=== PATIENT | female | born 1995 | race Two or more races ===

== ENCOUNTER 2018-05-11 12:28 | Outpatient (CLI) | payer BC, MEDICAID ==
[2018-05-11 13:50] LABS: APPEARANCE,URINE SLIGHTLY-CLOUDY; BILIRUBIN,URINE NEGATIVE (NEGATIVE); COLOR,URINE YELLOW; GLUCOSE, URINE NEGATIVE (NEGATIVE); KETONES,URINE NEGATIVE (NEGATIVE); LEUKOCYTE ESTERASE,URINE SMALL (NEGATIVE); NITRITE,URINE NEGATIVE (NEGATIVE); PROTEIN,URINE NEGATIVE (NEGATIVE); URINE SPECIFIC GRAVITY 1.021
--- NOTE | 2018-05-11 13:50 | L&D Progress Notes ---
PROGRESS NOTES Datetime Report Generated by CPN: 05/11/2018 13:49 PROGRESS NOTE Vital Signs : Reviewed; Within Normal Limits Comment: 23 y/o here for labor check, = 2011 and 2013 C/S 2014 for abruption, delivered at [facility], we need Operative report Allergies: Penicillin, denies smoking, alcohol or illegal drugs Hx UTI x 1, no blood transfusions, No Psych issues, no seizures, no BP or heart issues Single, FOB: involved, age 37. Hisp/Blk Feels safe at home, No Toxo EDC May 23 by sono at 20 weeks, Maleinfant, No Circ GTT nl per pt Desires MEDS: PNV's Last visit 32 weeks, had + Chlamydia and they did test of cure but does not know the results No Hx HSV Has been in [place] x 4 weeks Instructed pt she needs to get her a OB ROMELIA, getting records from [facility] for Operative Report and [facility] good FM Plan: Complete OB Sono GC and Chlamydia, GBS NST Cat 1, rare UC MEMBRANES Membranes: Intact FETUS A FHR - Baseline: 130 Monitoring: External US Variability: Moderate 6-25bpm Accelerations: 15X15 SIGNATURE SIGNATURE: [id number] Assignment: Blank Clinton MD Signature: with User ID: [email or web address] : with User ID: [email or web address]
[2018-05-11 14:26] LABS: URINE AMPHETAMINES SCREEN NEGATIVE; URINE BARBITURATES SCREEN NEGATIVE; URINE BENZODIAZEPINES SCREEN NEGATIVE; URINE COCAINE SCREEN NEGATIVE; URINE MARIJUANA (THC) SCREEN NEGATIVE; URINE METHADONE SCREEN NEGATIVE
[2018-05-11 14:28] LABS: URINE PHENCYCLIDINE SCREEN NEGATIVE
[2018-05-11 15:42] LABS: CHLAM PCR NOT DETECTED (NOT DETECT); GON PCR NOT DETECTED (NOT DETECT)
--- NOTE | 2018-05-11 16:54 | RADIOLOGY REPORT (SQ) ---
EXAM DESCRIPTION: U/S OB 14+ TRNABD 1GES W/O DOP COMPLETED DATE/TIME: 05/11/2018 4:38 pm REASON FOR STUDY: complete us for unable to document care COMPARISON: None. TECHNIQUE: Static and Dynamic grayscale imaging performed of gravid uterus using transabdominal appr oac. Additional selected color Doppler and spectral images recorded. All stored on PACS. LIMITATIONS: None. FINDINGS: EGA: 36 weeks 4 days RYAN: 06/04/2018 EFW: 6 lb 6 oz PERCENTILE: 23 percentile VAZQUEZ: 12.8 cm PLACENTA: Anterior. Migrated PRESENTATION: Cephalic. ANATOMY: HEART RATE: 117 beats per minute. to 152 beats per Min FOUR CHAMBER HEART: Visualized. THREE VESSEL CORD: Yes. CORD INSERTION: Visualized. KIDNEYS AND BLADDER: Visualized. Appear normal. STOMACH: Visualized. Appears normal. SPINE: Normal as visualized. BRAIN AND LATERAL VENTRICLES: Lateral ventricles not seen. Normal brain as visualized. OTHER: No other significant finding. MATERNAL ADNEXA: Maternal ovaries not visualized. CERVICAL LENGTH: 2.8 cm Closed. OTHER: No other significant finding. IMPRESSION: LIVING INTRAUTERINE . ESTIMATED GESTATIONAL AGE 36 weeks 4 days NO VISUALIZED ANOMALIES. Trimester of : Third trimester - 28 weeks to delivery. TECHNICAL DOCUMENTATION: JOB ID: [id number] [employer]- All Rights Reserved Reading location - IP/workstation name: [email or web address]
== END 2018-05-11 16:45 | disposition home or self-care (01) ==
LOC: LC 12:28
PROVIDERS: ATTEND Obstetrics & Gynecology
PROC: 4A1HXCZ Monitoring of Products of Conception, Cardiac Rate, External Approach (ICD-10-PCS; principal; 2018-05-11)
DX: O47.1 False labor at or after 37 completed weeks of gestation (principal); Z3A.38 38 weeks gestation of pregnancy
CPT/HCPCS: 59025; 76805; 80307; 81005; 87077; 87081; 87491; 87591

== ENCOUNTER 2018-05-23 07:14 | Outpatient (CLI) | payer BC, MEDICAID ==
[2018-05-23 08:12] LABS: APPEARANCE,URINE SLIGHTLY-CLOUDY; BILIRUBIN,URINE NEGATIVE (NEGATIVE); COLOR,URINE YELLOW; GLUCOSE, URINE NEGATIVE (NEGATIVE); KETONES,URINE NEGATIVE (NEGATIVE); LEUKOCYTE ESTERASE,URINE NEGATIVE (NEGATIVE); NITRITE,URINE NEGATIVE (NEGATIVE); PROTEIN,URINE NEGATIVE (NEGATIVE); URINE SPECIFIC GRAVITY 1.016
[2018-05-23 08:29] LABS: URINE AMPHETAMINES SCREEN NEGATIVE; URINE BARBITURATES SCREEN NEGATIVE; URINE BENZODIAZEPINES SCREEN NEGATIVE; URINE COCAINE SCREEN NEGATIVE; URINE MARIJUANA (THC) SCREEN NEGATIVE; URINE METHADONE SCREEN NEGATIVE; URINE PHENCYCLIDINE SCREEN NEGATIVE
[2018-05-23] MEDS ORDERED: RINGERS SOLUTION,LACTATED 1,000 ML IV ONE (09:44)
[2018-05-23] MEDS ORDERED: RINGERS SOLUTION,LACTATED 1,000 ML IV PRN (09:44)
[2018-05-23] MEDS ORDERED: CEFAZOLIN 2 GM/D5W RTU 2 GM/50 ML RTUPB IV ONE ×2 (09:44→10:08)
[2018-05-23 10:28] LABS: ABSOLUTE EOSINOPHILS # (AUTO) 0.1 10^3/uL (0.0-0.6); ABSOLUTE LYMPHOCYTES (AUTO) 1.8 10^3/uL (0.5-4.7); ABSOLUTE MONOCYTES (AUTO) 1.1 10^3/uL (0.1-1.4); ABSOLUTE NEUT (AUTO) 10.3 10^3/uL (1.7-8.2); BASOPHILS % (AUTO) 0.2 % (0-2); EOSINOPHILS % (AUTO) 0.7 % (0-6); HEMATOCRIT 31.2 % (36.0-47.0); HEMOGLOBIN 9.9 g/dL (12.0-15.5); LYMPHOCYTES % (AUTO) 13.4 % (13-45); MEAN CORPUSCULAR HEMOGLOBIN 23.2 pg (27.0-33.4); MEAN CORPUSCULAR HGB CONC 31.8 g/dL (32.0-36.0); MEAN CORPUSCULAR VOLUME 73 fl (80-97); PLATELET COUNT 161 10^3/uL (150-450); RED BLOOD COUNT 4.27 10^6/uL (3.72-5.28); RED CELL DISTRIBUTION WIDTH 17.3 % (11.5-14.0); SEGMENTED NEUTROPHILS % (AUTO) 77.7 % (42-78); TOTAL CELLS COUNTED % (AUTO) 100 %; WHITE BLOOD COUNT 13.2 10^3/uL (4.0-10.5)
[2018-05-23 11:36] LABS: RUBELLA INTERPRETATION POSITIVE
[2018-05-23] MEDS ORDERED: LIDOCAINE 1% INJ-PF (10 MG/ML) 30 ML SDV ONE (11:57)
[2018-05-23] MEDS ORDERED: OXYTOCIN/NORMAL SALINE 0 UNIT/0 ML RTUINJ ONE (11:57)
[2018-05-23] MEDS ORDERED: MISOPROSTOL 0.2 MG TABLET ONE (11:57)
--- NOTE | 2018-05-23 14:11 | Non Stress Test Report ---
Non Stress Test Datetime Report Generated by CPN: 05/23/2018 14:11 DEMOGRAPHIC EGA NST: 38.2 INDICATION Indication for Study: Ordered by Provider Indication for Study: Other Indication for Study (NST) Other: LC Indication for Study (NST) Other: no local care MONITORING Monitor Explained: Monitor Explained; Test Explained; Patient Verbalized Understanding Time on Monitor: 05/11/2018 13:00 Time off Monitor: 05/11/2018 13:53 NST Duration: 53 NST INTERVENTIONS NST Interventions: None NST Interventions: PO Hydration; Reposition Patient Physician Notified NST: A. Emmel, CNM Physician Notified NST: J Olsen CNM BABY A: [id number] BABY A Movement : Present Contraction Frequency : 0 FHR Baseline : 125 Accelerations : 15X15 Decelerations : None Variability : Moderate 6-25bpm NST Review: Meets Criteria for Reactive NST NST Results: Reactive NST REPORT Report Trigger: Send Report
[2018-05-23] MEDS ORDERED: CEFAZOLIN 1 GM/D5W RTU 1 GM/50 ML RTUPB IV ONE (22:09)
[2018-05-24 07:43] LABS: HEPATITIS C VIRUS AB <0.1 s/co ratio (0.0-0.9)
[2018-05-24 10:03] LABS: HEPATITS B SURFACE ANTIGEN Negative (Negative)
== END 2018-05-23 14:17 | disposition home or self-care (01) ==
LOC: LC 07:14 → LR 09:39 → UNDOADMIN 09:39 → LC 14:17 → UNDODISIN 14:17
PROVIDERS: ATTEND Obstetrics & Gynecology
PROC: 4A1HXCZ Monitoring of Products of Conception, Cardiac Rate, External Approach (ICD-10-PCS; principal; 2018-05-23)
DX: O47.1 False labor at or after 37 completed weeks of gestation (principal); O09.33 Supervision of pregnancy with insufficient antenatal care, third trimester; Z3A.40 40 weeks gestation of pregnancy
CPT/HCPCS: 59025; 86900; 86901; 36415; 86850; 85025; 81005; 86762; 86592; 87340; 86701; 80307; 86803; 86804; J0690; J2590; J3490

== ENCOUNTER 2018-05-23 21:16 | Inpatient (IN) | payer BC, MEDICAID ==
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
[2018-05-23] MEDS ORDERED: CEFAZOLIN INJ 1 GM VIAL ONE (21:52)
[2018-05-23] MEDS ORDERED: MISOPROSTOL 0.2 MG TABLET ONE (21:52)
[2018-05-23] MEDS ORDERED: LIDOCAINE 1% INJ-PF (10 MG/ML) 30 ML SDV ONE (21:53)
[2018-05-23] MEDS ORDERED: OXYTOCIN/NORMAL SALINE 20 UNIT/1,000 ML RTUINJ ONE (21:53)
[2018-05-23 22:18] LABS: ABSOLUTE EOSINOPHILS # (AUTO) 0.1 10^3/uL (0.0-0.6); ABSOLUTE LYMPHOCYTES (AUTO) 2.7 10^3/uL (0.5-4.7); ABSOLUTE MONOCYTES (AUTO) 1.6 10^3/uL (0.1-1.4); ABSOLUTE NEUT (AUTO) 12.5 10^3/uL (1.7-8.2); BASOPHILS % (AUTO) 0.1 % (0-2); EOSINOPHILS % (AUTO) 0.5 % (0-6); HEMATOCRIT 31.2 % (36.0-47.0); HEMOGLOBIN 9.7 g/dL (12.0-15.5); LYMPHOCYTES % (AUTO) 15.9 % (13-45); MEAN CORPUSCULAR HEMOGLOBIN 22.9 pg (27.0-33.4); MEAN CORPUSCULAR HGB CONC 31.1 g/dL (32.0-36.0); MEAN CORPUSCULAR VOLUME 74 fl (80-97); MONOCYTES % (AUTO) 9.3 % (3-13); PLATELET COUNT 167 10^3/uL (150-450); RED BLOOD COUNT 4.24 10^6/uL (3.72-5.28); RED CELL DISTRIBUTION WIDTH 17.1 % (11.5-14.0); SEGMENTED NEUTROPHILS % (AUTO) 74.2 % (42-78); TOTAL CELLS COUNTED % (AUTO) 100 %; WHITE BLOOD COUNT 16.8 10^3/uL (4.0-10.5)
[2018-05-23 22:23] LABS: APPEARANCE,URINE CLOUDY; BILIRUBIN,URINE NEGATIVE (NEGATIVE); COLOR,URINE YELLOW; GLUCOSE, URINE NEGATIVE (NEGATIVE); KETONES,URINE NEGATIVE (NEGATIVE); LEUKOCYTE ESTERASE,URINE TRACE (NEGATIVE); NITRITE,URINE NEGATIVE (NEGATIVE); PROTEIN,URINE NEGATIVE (NEGATIVE); URINE SPECIFIC GRAVITY 1.016
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
[2018-05-23 22:52] LABS: URINE AMPHETAMINES SCREEN NEGATIVE; URINE BARBITURATES SCREEN NEGATIVE; URINE BENZODIAZEPINES SCREEN NEGATIVE; URINE COCAINE SCREEN NEGATIVE; URINE MARIJUANA (THC) SCREEN NEGATIVE; URINE METHADONE SCREEN NEGATIVE; URINE PHENCYCLIDINE SCREEN NEGATIVE
[2018-05-23] MEDS ORDERED: OXYTOCIN/NORMAL SALINE 20 UNIT/1,000 ML RTUINJ IV PRN ×2 (22:55→23:20)
[2018-05-23] MEDS ORDERED: PROMETHAZINE HCL 25 MG TABLET PO PRN (23:20)
[2018-05-23] MEDS ORDERED: ACETAMINOPHEN WITH CODEINE #3 TABLET PO PRN (23:20)
[2018-05-23] MEDS ORDERED: PROMETHAZINE HCL INJ 25 MG/1 ML VIAL IV PRN (23:20)
[2018-05-23] MEDS ORDERED: MAGNESIUM HYDROXIDE SUSP 30 ML UDCUP PO PRN (23:20)
[2018-05-23] MEDS ORDERED: DIPHENHYDRAMINE HCL 25 MG CAPSULE PO PRN (23:20)
[2018-05-23] MEDS ORDERED: ACETAMINOPHEN 650 MG SUPP.RECT PR PRN (23:20)
[2018-05-23] MEDS ORDERED: ZOLPIDEM TARTRATE 5 MG TABLET PO PRN (23:20)
[2018-05-23] MEDS ORDERED: GLYCERIN/WITCH HAZEL LEAF 1 EACH MED..PAD TP PRN (23:20)
[2018-05-23] MEDS ORDERED: DIBUCAINE 1% OINTMENT 28 GM TP PRN (23:20)
[2018-05-23] MEDS ORDERED: BENZOCAINE/MENTHOL AEROSOL SPRAY 56 ML TOP PRN (23:20)
[2018-05-23] MEDS ORDERED: NA PHOS,M-B/NA PHOS,DI-BA (ADULT) 133 ML ENEMA PR PRN (23:20)
[2018-05-23] MEDS ORDERED: MEASLES,MUMPS&RUBELLA VACC/PF 0.5 ML VIAL SUBCUT PRN (23:20)
[2018-05-23] MEDS ORDERED: PSEUDOEPHEDRINE HCL 30 MG TABLET PO PRN (23:20)
[2018-05-23] MEDS ORDERED: PROMETHAZINE HCL 25 MG SUPP.RECT PR PRN (23:20)
[2018-05-23] MEDS ORDERED: DIPH/PERTUSS(ACELL)/TETANUS VAC/PF 0.5 ML SYR (>=10YO) IM PRN (23:20)
[2018-05-23] MEDS ORDERED: ACETAMINOPHEN WITH CODEINE #3 TABLET ONE (23:48)
[2018-05-23] MEDS: ACETAMINOPHEN WITH CODEINE #3 TABLET PO PRN (23:52)
[2018-05-24] MEDS ORDERED: METHYLERGONOVINE MALEATE INJ/PF 0.2 MG/1 ML AMPULE ONE (00:18)
--- NOTE | 2018-05-24 00:55 | Warning Signs in Babies ---
VOD Warning Signs Datetime Report Generated by [facility]: 05/24/2018 00:55 VOD#608 -Warning Signs in Babies: Needs to be viewed. (05/11/2018 12:53:Shannon Vargas RN)
[2018-05-24 01:18] LABS: CHLAM PCR NOT DETECTED (NOT DETECT); GON PCR NOT DETECTED (NOT DETECT)
--- NOTE | 2018-05-24 01:53 | Delivery Summary ---
Del Sum A-C Datetime Report Generated by CPN: 05/24/2018 01:53 DELIVERY PERSONNEL DELIVERY PERSONNEL: [id number] Delivery Doctor:: Mukesh Abbott CNM Labor and Delivery Nurse:: Shannon Vargas RN Labor and Delivery Nurse:: DARRYL Zazueta Tech/CNC MILL OPERATOR: TIFFANY ForrestA MATERNAL INFORMATION Delivery Anesthesia: None Medications After Delivery: Pitocin Drip 20 Units/1000ml NSS Maternal Complications: Other Complication Details: Provider Comments: pt with increased urge to push delivery of head body cord x 1 OA apgars 8/9 bulb suctioned on perinuem no lacerations placenta delivered in escoto fashion cord clamped cut by fob 3vc placenta to pathology uterus boggy uterus explored large clot expelled hemostasis achieved ebl 300 cc pt bonding well with infant successful vaginal delivery LABOR SUMMARY EDC: 05/23/2018 00:00 No. Babies in Womb: 1 Attempted: Yes Labor Anesthesia: None LABOR INFORMATION Reason for Induction: Not Applicable Onset of Labor: 05/23/2018 21:33 Complete Dilatation: 05/23/2018 23:15 Oxytocin: Augmentation Group B Beta Strep: Positive Antibiotics # of Doses: 2 Antibiotics Time of Last Dose: 2205 Name of Antibiotic Given: Ancef 1 gram Steroids Given: None Reason Steroids Not Administered: Not Applicable MEMBRANES Membranes Rupture Method: Spontaneous Rupture of Membranes: 05/23/2018 22:03 Length of Rupture (hr): 1.27 Amniotic Fluid Color: Clear Amniotic Fluid Amount: Small Amniotic Fluid Odor: Normal STAGES OF LABOR Stage 1 hr: 1 Stage 1 min: 42 Stage 2 hr: 0 Stage 2 min: 4 Stage 3 hr: 24 Stage 3 min: 2 Total Time in Labor hr: 25 Total Time in Labor min: 48 VAGINAL DELIVERY Episiotomy: None Laceration #1: None Laceration Extension #1: N/A Laceration Repair: No Sponge Count Correct: N/A Sharps Count Correct: N/A CSECTION DELIVERY Primary Indication: N/A Secondary Indication: N/A CSection Incidence: N/A Labor: N/A Elective: N/A CSection Incision: N/A BABY A INFORMATION Infant Delivery Date/Time: 05/23/2018 23:19 Method of Delivery: Vaginal Born in Route : No : Successful Forceps: N/A Vacuum Extraction: N/A Shoulder Dystocia : No PRESENTATION/POSITION BABY A Presentation: Cephalic Cephalic Presentation: Vertex Vertex Position: Right Occipital Anterior Breech Presentation: N/A PLACENTA INFORMATION BABY A Placenta Delivery Time : 05/24/2018 23:21 Placenta Method of Delivery: Spontaneous Placenta Status: Delivered SCORES BABY A Heart Rate 1 min: >100 bpm Resp Effort 1 min: Good Cry Reflex Irritability 1 min: Cough or Sneeze or Pulls Away Muscle Tone 1 min: Active Motion Color 1 min: Blue/Pale Resuscitation Effort 1 min: Tactile Stimulation SCORE 1 MIN: 8 Heart Rate 5 min: >100 bpm Resp Effort 5 min: Good Cry Reflex Irritability 5 min: Cough or Sneeze or Pulls Away Muscle Tone 5 min: Active Motion Color 5 min: Body [employer], Extremities Blue Resuscitation Effort 5 min: Tactile Stimulation SCORE 5 MIN: 9 INFANT INFORMATION BABY A Gestational Age at Delivery: 40.0 Gestational Status: Full Term- 39- 40.6 Weeks Outcome : Liveborn Infant Condition : Stable Sex: Male IDENTIFICATION BABY A Verification Date/Time: 05/23/2018 23:25 ID Band Number: [id number] Mother's Name Verified: Yes RN Verifying Infant: S. Lattibeaudeir, RNC Additional Verifying Personnel: Dariana Keira, US WEIGHT/LENGTH BABY A Infant Birthweight (gm): 3295 Weight (lb): 7 Weight (oz): 4 Length (in): 20.00 Length (cm): 50.80 CORD INFORMATION BABY A No. Cord Vessels: 3 Nuchal Cord : N/A Nuchal Cord- Other: body cord x 1 Cord Blood Taken: Yes-For Storage (Mom's Blood type +) Infant Suction: Mouth; Nose ASSESSMENT BABY A Infant Complications: None Physical Findings at Delivery: Within Normal Limits Infant Respirations: Appears Normal Skin to Skin: Yes Weigher And Charger/ALS Called : No Infant Care By: S. Lattibeajerodir, RNC Transferred To: Remains with Mother BABY B INFORMATION : N/A SIGNATURES Assignment: Blank Clinton MD Signature: with User ID: [email or web address] : with User ID: [email or web address]
[2018-05-24] MEDS ORDERED: CEFAZOLIN 1 GM/D5W RTU 1 GM/50 ML RTUPB IV SCH (05:41)
[2018-05-24] MEDS: IBUPROFEN 800 MG TABLET PO SCH ×3 (06:06→21:57)
[2018-05-24 07:47] LABS: HEMATOCRIT 26.7 % (36.0-47.0); HEMOGLOBIN 8.5 g/dL (12.0-15.5); MEAN CORPUSCULAR HEMOGLOBIN 23.4 pg (27.0-33.4); MEAN CORPUSCULAR HGB CONC 31.8 g/dL (32.0-36.0); MEAN CORPUSCULAR VOLUME 74 fl (80-97); PLATELET COUNT 168 10^3/uL (150-450); RED BLOOD COUNT 3.63 10^6/uL (3.72-5.28); RED CELL DISTRIBUTION WIDTH 17.5 % (11.5-14.0)
[2018-05-24] MEDS: FERROUS SULFATE 325 MG TABLET PO SCH ×2 (09:31→18:41)
[2018-05-24] MEDS: FAMOTIDINE 20 MG TABLET PO SCH ×2 (09:31→21:57)
[2018-05-24] MEDS: SENNOSIDES/DOCUSATE 8.6-50 MG 1 EACH TABLET PO SCH (09:31)
[2018-05-24] MEDS: DOCUSATE SODIUM 100 MG CAPSULE PO SCH ×2 (09:31→18:40)
[2018-05-24] MEDS: PRENATAL VITAMIN W DHA CAPSULE PO SCH (09:31)
[2018-05-24] MEDS: ACETAMINOPHEN WITH CODEINE #3 TABLET PO PRN (09:40)
--- NOTE | 2018-05-24 11:21 | PDOC PROGRESS REPORT ---
Subjective-OB Progress Note for:: 05/24/18 Subjective: Doing well, no c/o, eating well, mod bleeding, breast/bottle feeding Physical Exam (OB) Vital Signs: Temp Pulse Resp BP Pulse Ox 97.9 F 74 15 109/64 98 05/24/18 08:07 05/24/18 08:07 05/24/18 08:07 05/24/18 08:07 05/24/18 08:07 Intake & Output 05/23/18 05/24/18 05/25/18 06:59 06:59 06:59 Intake Total 480 Balance 480 - PIH/Pre-Eclampsia Clonus: Negative Headache: Absent Epigastric Pain: No Visual Changes: No - Lochia Lochia Amount: Small 10-25 ml Lochia Color: Rubra/Red - Abdomen Description: Tender, Soft Hernia Present: No Fundal Description: Firm, Midline Fundal Height: u/u - u/2 Objective-Diagnostic Laboratory: 05/24/18 07:31 05/23/18 05/23/18 05/24/18 21:40 22:10 00:50 WBC 16.8 H RBC 4.24 Hgb 9.7 L Hct 31.2 L MCV 74 L MCH 22.9 L MCHC 31.1 L RDW 17.1 H Plt Count 167 Seg Neutrophils % 74.2 Lymphocytes % 15.9 Monocytes % 9.3 Eosinophils % 0.5 Basophils % 0.1 Absolute Neutrophils 12.5 H Absolute Lymphocytes 2.7 Absolute Monocytes 1.6 H Absolute Eosinophils 0.1 Absolute Basophils 0.0 Urine Color YELLOW Urine Appearance CLOUDY Urine pH 7.0 Ur Specific [place] 1.016 Urine Protein NEGATIVE Urine Glucose (UA) NEGATIVE Urine Ketones NEGATIVE Urine Blood SMALL H Urine Nitrite NEGATIVE Ur Leukocyte Esterase TRACE H Blood Type B POSITIVE Antibody Screen NEGATIVE 05/24/18 07:31 WBC 19.0 H RBC 3.63 L Hgb 8.5 L Hct 26.7 L MCV 74 L MCH 23.4 L MCHC 31.8 L RDW 17.5 H Plt Count 168 Seg Neutrophils % Lymphocytes % Monocytes % Eosinophils % Basophils % Absolute Neutrophils Absolute Lymphocytes Absolute Monocytes Absolute Eosinophils Absolute Basophils Urine Color Urine Appearance Urine pH Ur Specific [place] Urine Protein Urine Glucose (UA) Urine Ketones Urine Blood Urine Nitrite Ur Leukocyte Esterase Blood Type Antibody Screen Assessment and Plan(PN) - Assessment and Plan (1) hemorrhage of vagina Is this a current diagnosis for this admission?: Yes (2) GBS (group B Streptococcus carrier), +RV culture, currently Is this a current diagnosis for this admission?: Yes (3) Anemia Qualifiers: Other causes of anemia: acute posthemorrhagic Is this a current diagnosis for this admission?: Yes (4) Normal vaginal delivery Is this a current diagnosis for this admission?: Yes - Time Spent with Patient Time with patient: Less than 15 minutes Medications reviewed and adjusted accordingly: Yes - Disposition Anticipated Discharge: Home Within: within 24 hours
[2018-05-25] MEDS: ACETAMINOPHEN WITH CODEINE #3 TABLET PO PRN ×2 (00:05→06:40)
[2018-05-25] MEDS: IBUPROFEN 800 MG TABLET PO SCH (05:20)
[2018-05-25] MEDS: FAMOTIDINE 20 MG TABLET PO SCH (09:59)
[2018-05-25] MEDS: DOCUSATE SODIUM 100 MG CAPSULE PO SCH (09:59)
[2018-05-25] MEDS: FERROUS SULFATE 325 MG TABLET PO SCH (09:59)
[2018-05-25] MEDS: PRENATAL VITAMIN W DHA CAPSULE PO SCH (09:59)
[2018-05-25] MEDS: SENNOSIDES/DOCUSATE 8.6-50 MG 1 EACH TABLET PO SCH (09:59)
--- NOTE | 2018-05-25 10:50 | PDOC DISCHARGE SUMMARY ---
Final Diagnosis Discharge Date: 05/25/18 - Final Diagnosis (1) , delivered Is this a current diagnosis for this admission?: Yes (2) Anemia Is this a current diagnosis for this admission?: Yes (3) GBS (group B Streptococcus carrier), +RV culture, currently Is this a current diagnosis for this admission?: Yes (4) hemorrhage of vagina Is this a current diagnosis for this admission?: Yes Discharge Data - Discharge Medication Home Medications: Prenat 115/Iron Fum/Folic/Dss [ 19 Tablet] 1 tab PO DAILY 05/31/15 Reason(s) for Admission: Onset of Labor Procedures: NST Intrapartum Procedure(s): Spontaneous Vaginal Delivery - Diagnosis Test Laboratory: Temp Pulse Resp BP Pulse Ox 97.9 F 79 15 102/68 100 05/25/18 08:34 05/25/18 08:34 05/25/18 08:34 05/25/18 08:34 05/25/18 08:34 05/23/18 05/23/18 05/24/18 21:40 22:10 07:31 RBC 4.24 3.63 L Hgb 9.7 L 8.5 L Hct 31.2 L 26.7 L Urine Opiates Screen NEGATIVE - Discharge information/Instructions Discharge Activity: Balance Activity w/Rest, Pelvic Rest Discharge Diet: Regular Disposition: HOME, SELF-CARE Follow up with: [facility] in: 4, Weeks
[2018-05-25 11:48] VITALS: BP 103/66
== END 2018-05-25 13:51 | disposition home or self-care (01) | DRG 774 ==
LOC: LC 21:16 → LR 21:45 → 2S 05-24 02:14
PROVIDERS: ADMIT Obstetrics & Gynecology; ATTEND Obstetrics & Gynecology
PROC: 10E0XZZ Delivery of Products of Conception, External Approach (ICD-10-PCS; principal; 2018-05-23)
DX: O69.2XX0 Labor and delivery complicated by other cord entanglement, with compression, not applicable or unspecified (principal); O72.1 Other immediate postpartum hemorrhage; D62 Acute posthemorrhagic anemia; O34.211 Maternal care for low transverse scar from previous cesarean delivery; N85.8 Other specified noninflammatory disorders of uterus; O99.824 Streptococcus B carrier state complicating childbirth; O99.02 Anemia complicating childbirth; Z3A.40 40 weeks gestation of pregnancy; Z37.0 Single live birth
CPT/HCPCS: 36415; 80307; 81005; 85025; 85027; 86592; 86850; 86900; 86901; 87491; 87591; 88307; J0690; J2210; J2590; J3490